=== PATIENT | female | born 1975 | race Caucasian/White ===

== ENCOUNTER 2016-03-19 13:35 | Emergency (ER) | payer OTHER ==
[2016-03-19] MEDS ORDERED: IOPAMIDOL 300 (61%) 150 ML VIAL IV ONE (13:36)
[2016-03-19 14:32] LABS: SPECIFIC GRAVITY 1.025 (1.001-1.030); URINE BILIRUBIN NEGATIVE (NEGATIVE); URINE BLOOD TRACE (NEGATIVE); URINE GLUCOSE (UA) NEGATIVE (NEGATIVE); URINE LEUKOCYTE ESTERASE NEGATIVE (NEGATIVE); URINE NITRITE NEGATIVE (NEGATIVE); URINE PROTEIN NEGATIVE (NEGATIVE); URINE UROBILINOGEN NORMAL (0-1 mg/dl)
[2016-03-19 14:33] LABS: URINE APPEARANCE CLEAR; URINE COLOR AMBER
[2016-03-19 14:57] LABS: URINE EPITHELIAL CELLS 0-1 /hpf; URINE RBC 0-2 /hpf; URINE WBC 0-1 /hpf
[2016-03-19 14:58] LABS: URINE BACTERIA 1+
[2016-03-19] MEDS ORDERED: ONDANSETRON 4 MG/2ML 2 ML VIAL ONE (15:17)
[2016-03-19] MEDS ORDERED: HYDROMORPHONE HCL 0.5 MG/0.5 ML SYRINGE ONE ×2 (15:18→16:43)
[2016-03-19 15:28] LABS: ABSOLUTE NEUTROPHIL COUNT 3.8 K/mm3 (1.8-7.7); BASO % 0.4 % (0.2-1.0); EOS # 0.2 (0.0-0.5); EOS % 2.1 % (0.9-2.9); HEMOGLOBIN 14.2 gm/l (12.0-16.0); IMM NEUT% 0.4 % (0-1); LYMPH # 2.6 (1.0-4.8); LYMPH % 36.4 % (15-45); MEAN CELL VOLUME 90.7 fl (81.0-99.0); MEAN CORPUSCULAR HEMOGLOBIN 31.4 pg (27.0-31.0); MEAN CORPUSCULAR HGB CONC 34.6 g/dl (33.0-37.0); MEAN PLATELET VOLUME 11.1 fl (7.4-10.4); MONO # 0.6 (0.0-0.8); NEUT % 52.7 % (43-75); PLATELET COUNT 205 K/mm3 (130-400); RED CELL DISTRIBUTION WIDTH 11.9 % (11.5-14.5)
[2016-03-19 15:42] LABS: ALB/GLOB RATIO 1.4 (>1.0); ALBUMIN 4.2 gm/dL (3.5-5.7); CALCIUM 9.1 mg/dL (8.6-10.3)
--- NOTE | 2016-03-19 16:04 | CT ---
ABD/PELVIS W/ CON COMPARISON: CT abdomen pelvis with contrast 10/12/2013 HISTORY: Right lower quadrant pain for 3 days. Technique: Intravenous injection 125 mL Isovue 300. Using a [employer] Aquilion [address] scanner, images were obtained from the diaphragm to the floor the pelvis. An automated dose reduction technique was used to minimize patient radiation dose. Dose information: CTDIvol (mGy): 17.60 DLP(mGycm): 880.40 FINDINGS: Lung bases: Normal. Inferior mediastinum and heart: Normal. Liver: Normal. Gallbladder:Normal. Bile ducts: Normal. Pancreas: Normal. Spleen: Normal. Adrenal glands: Normal. Kidneys: Normal. Ureters: Normal Urinary bladder: Normal. Uterus and adnexa: Hysterectomy Blood vessels: Normal Lymph nodes: Normal Stomach: Normal Duodenum: Normal Small intestine: Normal Appendix: Normal Colon: Normal Abdominal wall and supporting musculature: Normal Bones: Degenerative changes. No acute finding IMPRESSION: 1. No acute finding. Normal appendix. 2. Incidental findings include hysterectomy and degenerative changes in the spine. The hepatic nodule seen on the prior study is isodense to the remainder of the liver on the current study. The report was sent to the emergency department [employer] medical record system 03/19/2016 at 16:00
[2016-03-19] MEDS ORDERED: LACTATED RINGERS 1,000 ML ONE (16:42)
--- NOTE | 2016-03-19 17:44 | US ---
Clinical indication: Right lower quadrant pain for 4 days. Technique: Transabdominal pelvic sonography was performed.To better visualize the adnexa transvaginal sonography was performed. Comparison: Contrast-enhanced CT scan of the abdomen and pelvis dated 03/19/2016. Findings: Uterus: The uterus is surgically absent.. No pelvic mass is identified. Adnexa: There are no adnexal masses or complicated fluid collections. No free fluid is identified. Bladder: No bladder abnormalities are identified. IMPRESSION: Patient with prior hysterectomy and apparent oophorectomy. No adnexal masses, abnormal fluid collections or lesions are identified. The findings were uploaded to the electronic medical record for review at approximately 5:44 PM 03/19/2016
[2016-03-19] MEDS ORDERED: KETOROLAC TROMETHAMINE 15 MG/ML VIAL ONE (18:10)
[2016-03-21 14:52] LABS: N.GONORRHOEAE BD Negative (Negative); SOURCE Urine (())
== END 2016-03-19 18:46 | disposition home or self-care (01) ==
LOC: ED 13:35
DX: R10.31 Right lower quadrant pain (principal); E34.9 Endocrine disorder, unspecified; Z87.442 Personal history of urinary calculi
CPT/HCPCS: 83690; 87591; 87320; 84703; 85025; 87086; 80053; 81001; 74177; 76856; 76830; 96375 ×2; 96376; 99284 ×2; 96374; 96361; J1885; J2405; J7120; Q9967; J1170 ×2

== ENCOUNTER 2016-06-02 10:50 | Emergency (ER) | payer OTHER ==
[2016-06-02] MEDS ORDERED: ONDANSETRON 4 MG ODT TAB ONE (11:45)
[2016-06-02] MEDS ORDERED: KETOROLAC TROMETHAMINE 60 MG/2 ML VIAL ONE (11:45)
[2016-06-02] MEDS ORDERED: METOCLOPRAMIDE HCL 5 MG/ML 2ML VIAL ONE (11:45)
[2016-06-02] MEDS ORDERED: DIPHENHYDRAMINE HCL 50 MG/1 ML VIAL ONE (11:45)
[2016-06-02] MEDS ORDERED: MORPHINE SULFATE 4 MG/ML SYRINGE ONE (12:39)
[2016-06-02] MEDS ORDERED: MORPHINE SULFATE 2 MG/ML SYRINGE ONE (12:39)
== END 2016-06-02 13:07 | disposition home or self-care (01) ==
LOC: ED 10:50
DX: G43.909 Migraine, unspecified, not intractable, without status migrainosus (principal); J32.9 Chronic sinusitis, unspecified; J33.8 Other polyp of sinus; G35 Multiple sclerosis
CPT/HCPCS: 99283 ×2; 96372 ×4; J1200; J2270 ×2; J2765; J1885; A9270

== ENCOUNTER 2016-07-15 13:22 | Emergency (ER) | payer OTHER ==
[2016-07-15] MEDS ORDERED: PREDNISONE 20 MG TABLET ONE (14:04)
[2016-07-15] MEDS ORDERED: HYDROCODONE/ACETAMINOPHEN 5/325MG TABLET ONE (14:04)
[2016-07-15] MEDS ORDERED: DIAZEPAM 5 MG TABLET ONE (14:05)
[2016-07-15] MEDS ORDERED: CYCLOBENZAPRINE HCL 10 MG TABLET ONE (15:48)
== END 2016-07-15 16:16 | disposition home or self-care (01) ==
LOC: ED 13:22
DX: M54.5 Low back pain (principal); G35 Multiple sclerosis